=== PATIENT | female | born 1960 | race Caucasian/White ===

== ENCOUNTER → 2017-04-02 | Day surgery (SDC) | payer BC ==
[2017-03-11 12:28] VITALS: Ht 157.5 cm; Wt 70.0 kg
[~2017-04-02] VITALS: Ht 157.5 cm; Wt 70.0 kg
[~2017-04-02] MED LIST: ATROPINE SULFATE 0.1 MG/ML 5ML SYR IV PRN; BUPIVACAINE 0.5 % 5 MG/1 ML PF 10ML VIAL ONE; ESTR0.5T3 PO; EpHEDrine SULFATE INJ 50 MG/ML AMP IV PRN; FENTANYL CITRATE INJ 50 MCG/1 ML 2 ML VIAL IV PRN; FENTANYL CITRATE INJ 50 MCG/1 ML 2 ML VIAL ONE; HYDR-5688 PO; IBUP-1050 PO; LACTATED RINGER'S 1000ML 1,000 ML IV SCH; LEVO50TA PO; LIDOCAINE HCL 1% 20 ML VIAL ONE; LIDOCAINE HCL 2% 2 ML VIAL (20MG/ML) ONE; MECL1TAB42 PO; MIDAZOLAM HCL 1 MG/ML 2ML VIAL ONE; OMEGCAP2 PO; ONDANSETRON INJ 2 MG/ML 2 ML VIAL IV PRN; ONDANSETRON INJ 2 MG/ML 2 ML VIAL ONE; OXYCODONE/ACETAMINOPHEN 5-325 TAB PO PRN; PROPOFOL IV EMULSION 10 MG/ML 20 ML VIAL IV ONE; SODIUM CHLORIDE 0.9% 1000ML 1,000 ML IV SCH; TRAM-10 PO; VENL150C PO
[2017-04-02] MEDS: CEFAZOLIN 1000MG/55 ML D5W IV SCH ×2 (06:00→06:53)
--- NOTE | 2017-04-02 06:44 | History & Physical Bridge - [place] ---
H&P Re-Evaluation Bridge Note: I have examined the patient, reviewed the History & Physical and in the interval since the performance of the History & Physical I have noted the following changes of clinical significance: No changes noted
--- NOTE | 2017-04-02 07:14 | [facility] Post Operative Brief Note ---
Immediate Operative Summary Operative Date Apr 02, 2017. Pre-Operative Diagnosis Right Carpal Tunnel Syndrome Post-Operative Diagnosis Same Procedure(s) Performed Right Carpal Tunnel Release Surgeon Dr. Viera Master Carpenter Surgeon(s) Aftab Nunez PA-C Estimated Blood Loss None Findings ABOVE Specimens None Anesthesia LOCAL IV SEDATION Complication(s) None Disposition
[2017-04-02 07:15] VITALS: TEMP 36.4
--- NOTE | 2017-04-02 07:17 | Discharge Instructions-SurgCtr ---
Discharge Instructions Date of Service Apr 02, 2017. Visit Reason for Visit: Right Carpal Tunnel Syndrome, Wrist Pain Discharge Discharge Diagnosis / Problem: SAME ABOVE Discharge Goals Goal(s): Decrease discomfort, Improve function Activity Recommendations Activity Limitations: as noted below Lifting Limitations: until after follow-up appointment May Resume Sexual Activity: after follow-up appointment Shower/Bathe: keep incision dry Anesthesia . Post Anesthesia Instructions: If you have had General Anesthesia or IV Sedation: * Do not drive today. * Resume driving when surgeon permits. * Do not make important decisions or sign legal documents today. * Call surgeon for: 1. Temperature elevations greater than 101 degrees F. 2. Uncontrollable pain. 3. Excessive bleeding. 4. Persistent nausea and vomiting. 5. Medication intolerance (nausea, vomiting or rash). * For nausea and vomiting use only clear liquids such as: tea, soda, bouillon until nausea subsides, then gradually increase diet as tolerated. * If you have any concerns or questions, call your surgeon's office. If physician is unavailable and it is an emergency, call 911 or go to the nearest emergency room. . Instructions / Follow-Up Instructions / Follow-Up MEDICATIONS: * Resume previous medications unless instructed otherwise by your surgeon. * Always take pain medication on a full stomach or with food to avoid upset stomach. * Do not drink alcohol or drive while taking narcotics. * Ibuprofen or Tylenol may be taken if narcotic not needed. SPECIAL CARE INSTRUCTIONS: __ None _X_ Keep extremity elevated and iced x 48 hours; apply ice 20-30 minutes 8-10 times/day. May remove at night. __ Sling __24 hrs/day __ Remove at night __ Shoulder Immobilizer __ 24 hrs/day __ Remove at night _X_ Dressing _X_ Maintain until seen in office, may shower with plastic over site __ Remove dressings in 24-48 hours and then may shower __ Cover incisions with band-aids after showering __ Do not remove steri-strips Call physician if chills or temperature rises above 102 degrees or pain unrelieved by prescribed pain medications at . . Diet Recommendations Home Diet: resume previous diet Procedures Procedures Performed: Right Carpal Tunnel Release Pending Studies Studies pending at discharge: no Medical Emergencies . Who to Call and When: Medical Emergencies: If at any time you feel your situation is an emergency, please call 911 immediately. . Non-Emergent Contact Non-Emergency issues call your: Primary Care Provider . . "Provider Documentation" section prepared by Willem Nunez. .
[2017-04-02 07:34] VITALS: BP 125/82; PULSE 80; O2SAT 96
--- NOTE | 2017-04-02 07:38 | Anesthesia Progress Nt - [facility] ---
Anesthesia Post Op Note Date & Time Apr 02, 2017 at 07:38 Vital Signs Pain Intensity: 0 Vital Signs Past 12 Hours Date Time Temp Pulse Resp B/P (MAP) Pulse Ox O2 Delivery O2 Flow Rate FiO2 04/02/17 07:34 80 16 125/82 (96) 96 Room Air 04/02/17 07:15 36.4 66 12 111/70 (84) 95 Room Air 04/02/17 06:26 36.5 66 16 133/73 (93) 97 Room Air Notes Mental Status: alert / awake / arousable, participated in evaluation Pt Amnestic to Procedure: Yes Nausea / Vomiting: adequately controlled Pain: adequately controlled Airway Patency, RR, SpO2: stable & adequate BP & HR: stable & adequate Hydration State: stable & adequate Anesthetic Complications: no major complications apparent
--- NOTE | 2017-04-25 09:35 | OPERATIVE REPORT ---
DATE OF OPERATION: 04/02/2017 PREOPERATIVE DIAGNOSIS: Right carpal tunnel syndrome. POSTOPERATIVE DIAGNOSIS: Same. PROCEDURE: Decompression median nerve release transverse carpal ligament, right wrist. SURGEON: Dr. Viera. COUNTY EXTENSION AGENT: Willem Nunez PA-C. ANESTHESIOLOGIST: Dr. Hubbard. ANESTHESIA: Local with IV sedation. DRAINS: None. COMPLICATIONS: None. CONDITION: The patient tolerated the procedure well and returned to recovery in apparent satisfactory condition. INDICATIONS FOR SURGERY: Aline Milton is a 56-year-old female who has had increasing pain, numbness and tingling consistent with carpal tunnel in the right hand. Went over treatment options. Elected to go ahead and proceed with surgery. Procedure, expected outcomes and side effects were all explained in detail. OPERATION AND FINDINGS: PROCEDURE: The patient was taken to the OR at which time she was placed supine on the operating table. The right hand was prepped and draped in the usual sterile fashion for this surgery. The anticipated incision site was infiltrated with 1% Xylocaine. A forearm tourniquet was placed on the arm and tourniquet was placed up to 250 mmHg. Incision was made vertically over the transverse carpal tunnel ligament. Dissection was done down until the palmar fascia was identified and divided with a 15-blade. The transverse carpal ligament was identified and also divided with the 15-blade and upbiting scissors. A small portion of the forearm fascia was divided also. Electrocautery was used to control any areas of bleeding. The nerve was freed up from any scar tissue and adequately decompressed. The wound then was copiously irrigated. It was closed then with interrupted 4-0 nylon sutures. Marcaine without Epinephrine was placed in the skin edges. It was closed in a layered fashion. We placed a sterile dressing of Xeroform, 4 x 4, volar splint, and an Matt bandage. DISPOSITION: The patient was returned back to the recovery room in apparent satisfactory condition. I attest to the content of the Intraoperative Record and any orders documented therein. Any exception s are noted below.
== END | disposition home or self-care (01) ==
LOC: X.SURG 06:09
PROVIDERS: ATTEND Orthopaedic Surgery
DX: G56.01 Carpal tunnel syndrome, right upper limb (principal); E03.9 Hypothyroidism, unspecified; F32.9 Major depressive disorder, single episode, unspecified; Z79.899 Other long term (current) drug therapy

== ENCOUNTER → 2017-05-14 | Day surgery (SDC) | payer BC ==
[2017-05-10 11:22] VITALS: Ht 157.5 cm; Wt 70.0 kg
[~2017-05-14] VITALS: Ht 157.5 cm; Wt 70.0 kg
[~2017-05-14] MED LIST changes: +CEFAZOLIN 1000MG/55 ML D5W IV SCH; +FLUMAZENIL 0.1 MG/1 ML 10 ML VIAL IV PRN; -HYDR-5688 PO; +HYDROmorphone INJ 2 MG/ML SYR/VIAL IV PRN; +LABETALOL HCL IV 5 MG/ML 20ML IV PRN; -LIDOCAINE HCL 2% 2 ML VIAL (20MG/ML) ONE; +MEPERIDINE HCL 25 MG/ML CARP IV PRN; +NALOXONE HCL 0.4 MG/1 ML VIAL/CARP IV PRN; -ONDANSETRON INJ 2 MG/ML 2 ML VIAL ONE; +PHENYLEPHRINE 100MCG/ML 5ML SYR IV PRN
--- NOTE | 2017-05-14 07:40 | [facility] Post Operative Brief Note ---
Immediate Operative Summary Operative Date May 14, 2017. Pre-Operative Diagnosis Left Carpal Tunnel Syndrome Post-Operative Diagnosis same Procedure(s) Performed Left Carpal Tunnel Release Surgeon Dr. Laureen Viera Director [facility] Surgeon(s) Willem Nunez PA-C Estimated Blood Loss 0 Findings ABOVE Specimens none Anesthesia LOCAL IV SEDATION Complication(s) None Disposition
[2017-05-14 07:44] VITALS: TEMP 36.5
--- NOTE | 2017-05-14 07:45 | Discharge Instructions-SurgCtr ---
Discharge Instructions Date of Service May 14, 2017. Visit Reason for Visit: Left Carpal Tunnel Syndrome Discharge Discharge Diagnosis / Problem: SAME ABOVE Discharge Goals Goal(s): Decrease discomfort, Improve function Activity Recommendations Activity Limitations: as noted below Lifting Limitations: until after follow-up appointment Exercise/Sports Limitations: until after follow-up appointment Shower/Bathe: keep incision dry Anesthesia . Post Anesthesia Instructions: If you have had General Anesthesia or IV Sedation: * Do not drive today. * Resume driving when surgeon permits. * Do not make important decisions or sign legal documents today. * Call surgeon for: 1. Temperature elevations greater than 101 degrees F. 2. Uncontrollable pain. 3. Excessive bleeding. 4. Persistent nausea and vomiting. 5. Medication intolerance (nausea, vomiting or rash). * For nausea and vomiting use only clear liquids such as: tea, soda, bouillon until nausea subsides, then gradually increase diet as tolerated. * If you have any concerns or questions, call your surgeon's office. If physician is unavailable and it is an emergency, call 911 or go to the nearest emergency room. . Instructions / Follow-Up Instructions / Follow-Up MEDICATIONS: * Resume previous medications unless instructed otherwise by your surgeon. * Always take pain medication on a full stomach or with food to avoid upset stomach. * Do not drink alcohol or drive while taking narcotics. * Ibuprofen or Tylenol may be taken if narcotic not needed. SPECIAL CARE INSTRUCTIONS: __ None _X_ Keep extremity elevated and iced x 48 hours; apply ice 20-30 minutes 8-10 times/day. May remove at night. __ Sling __24 hrs/day __ Remove at night __ Shoulder Immobilizer __ 24 hrs/day __ Remove at night _X_ Dressing _X_ Maintain until seen in office, may shower with plastic over site __ Remove dressings in 24-48 hours and then may shower __ Cover incisions with band-aids after showering __ Do not remove steri-strips Call physician if chills or temperature rises above 102 degrees or pain unrelieved by prescribed pain medications at . . Diet Recommendations Home Diet: resume previous diet Procedures Procedures Performed: Left Carpal Tunnel Release Pending Studies Studies pending at discharge: no Medical Emergencies . Who to Call and When: Medical Emergencies: If at any time you feel your situation is an emergency, please call 911 immediately. . Non-Emergent Contact Non-Emergency issues call your: Primary Care Provider . . "Provider Documentation" section prepared by Willem Nunez. .
--- NOTE | 2017-05-14 07:51 | OPERATIVE REPORT ---
DATE OF OPERATION: 05/14/2017 PREOPERATIVE DIAGNOSIS: Left carpal tunnel syndrome. POSTOPERATIVE DIAGNOSIS: Same. PROCEDURE: Release transverse carpal ligament, left wrist. SURGEON: Dr. Viera. FINANCE ADVISOR: Willem Nunez PA-C. ANESTHESIOLOGIST: Dr. Dixon. ANESTHESIA: Local with IV sedation. DRAINS: None. COMPLICATIONS: None. CONDITION: The patient tolerated the procedure well and returned to the recovery room in apparent satisfactory condition. INDICATIONS FOR SURGERY: Aline is well known to me. She is 57-year-old and now presents with left carpal tunnel complaints having had her right hand done. I went over treatment options and elected to go ahead and proceed with surgery. Procedure, expected outcomes and side effects were all explained in detail. PROCEDURE: The patient was taken to the OR at which time she was placed supine on the operating table. The left hand was prepped and draped in the usual sterile fashion for this surgery. The anticipated incision site was infiltrated with 1% Xylocaine. A forearm tourniquet was placed on the arm and tourniquet was placed up to 250 mmHg. Incision was made vertically over the transverse carpal tunnel ligament. Dissection was done down until the palmar fascia was identified and divided with a 15-blade. The transverse carpal ligament was identified and also divided with the 15-blade and upbiting scissors. A small portion of the forearm fascia was divided also. Electrocautery was used to control any areas of bleeding. The nerve was freed up from any scar tissue and adequately decompressed. The wound then was copiously irrigated. It was closed then with interrupted 4-0 nylon sutures. Marcaine without Epinephrine was placed in the skin edges. It was closed in a layered fashion. We placed a sterile dressing of Xeroform, 4 x 4, volar splint, and an Matt bandage. DISPOSITION: The patient was returned back to the recovery room in apparent satisfactory condition. I attest to the content of the Intraoperative Record and any orders documented therein. Any exception s are noted below.
--- NOTE | 2017-05-14 07:52 | Anesthesia Progress Nt - [facility] ---
Anesthesia Post Op Note Date & Time May 14, 2017 at 07:52 Vital Signs Pain Intensity: 0 Vital Signs Past 12 Hours Date Time Temp Pulse Resp B/P (MAP) Pulse Ox O2 Delivery O2 Flow Rate FiO2 05/14/17 06:25 36.7 70 16 143/87 (105) 98 Room Air Notes Mental Status: alert / awake / arousable, participated in evaluation Pt Amnestic to Procedure: Yes Nausea / Vomiting: adequately controlled Pain: adequately controlled Airway Patency, RR, SpO2: stable & adequate BP & HR: stable & adequate Hydration State: stable & adequate Anesthetic Complications: no major complications apparent
[2017-05-14 08:05] VITALS: BP 127/74; PULSE 55; O2SAT 100
== END | disposition home or self-care (01) ==
LOC: X.SURG 06:19
PROVIDERS: ATTEND Orthopaedic Surgery
DX: G56.02 Carpal tunnel syndrome, left upper limb (principal); Z90.710 Acquired absence of both cervix and uterus; Z98.41 Cataract extraction status, right eye; E03.9 Hypothyroidism, unspecified; F32.9 Major depressive disorder, single episode, unspecified; M19.90 Unspecified osteoarthritis, unspecified site; F41.9 Anxiety disorder, unspecified

== ENCOUNTER → 2017-06-21 | Outpatient (CLI) | payer BC ==
[~2017-06-21] MED LIST changes: -ATROPINE SULFATE 0.1 MG/ML 5ML SYR IV PRN; -BUPIVACAINE 0.5 % 5 MG/1 ML PF 10ML VIAL ONE; -CEFAZOLIN 1000MG/55 ML D5W IV SCH; -EpHEDrine SULFATE INJ 50 MG/ML AMP IV PRN; -FENTANYL CITRATE INJ 50 MCG/1 ML 2 ML VIAL IV PRN; -FENTANYL CITRATE INJ 50 MCG/1 ML 2 ML VIAL ONE; -FLUMAZENIL 0.1 MG/1 ML 10 ML VIAL IV PRN; -HYDROmorphone INJ 2 MG/ML SYR/VIAL IV PRN; -LABETALOL HCL IV 5 MG/ML 20ML IV PRN; -LACTATED RINGER'S 1000ML 1,000 ML IV SCH; -LIDOCAINE HCL 1% 20 ML VIAL ONE; -MEPERIDINE HCL 25 MG/ML CARP IV PRN; -MIDAZOLAM HCL 1 MG/ML 2ML VIAL ONE; -NALOXONE HCL 0.4 MG/1 ML VIAL/CARP IV PRN; -ONDANSETRON INJ 2 MG/ML 2 ML VIAL IV PRN; -OXYCODONE/ACETAMINOPHEN 5-325 TAB PO PRN; -PHENYLEPHRINE 100MCG/ML 5ML SYR IV PRN; -PROPOFOL IV EMULSION 10 MG/ML 20 ML VIAL IV ONE; -SODIUM CHLORIDE 0.9% 1000ML 1,000 ML IV SCH
--- NOTE | 2017-06-21 12:29 | DIAGNOSTIC IMAGING REPORT ---
CERVICAL SPINE 2 OR 3 VIEWS HISTORY: Pain M54.2 Cervicalgia with worsening cervical spine pain. R/o DDD. COMPARISON: None. FINDINGS: The cervical spine is visualized from C1 through the superior endplate of T1. There is no fracture. No subluxation. Disc spaces are preserved. Prevertebral soft tissues and the atlantodens interval are intact. IMPRESSION: No fracture or subluxation within the cervical spine. The above report was generated using voice recognition software. It may contain grammatical, syntax or spelling errors. Electronically signed by: Musa Carl M.D. 06/21/2017 12:28 PM Dictated Date/Time: 06/21/2017 12:27 PM
== END | disposition home or self-care (01) ==
LOC: C.RAD1850 12:17
PROVIDERS: ATTEND Family Medicine
DX: M54.2 Cervicalgia (principal)

== ENCOUNTER → 2017-08-16 | Outpatient (CLI) | payer BC ==
--- NOTE | 2017-08-16 09:35 | DIAGNOSTIC IMAGING REPORT ---
Neck ULTRASOUND HISTORY: R22.1 Lump in neck Pt with palpable lump at left side of neck, an COMPARISON: None. FINDINGS: Real-time sonographic imaging of the neck was performed. At the patient's questioned palpable abnormality in the left submandibular region there is a normal-appearing submandibular gland. No lymph nodes, fluid collections, or masses identified within the neck. The thyroid gland appears unremarkable. IMPRESSION: No sonographic abnormality within the neck. The patient's palpable abnormality appears to correspond to a normal left submandibular gland. Electronically signed by: Husam Saleh M.D. 08/16/2017 9:34 AM Dictated Date/Time: 08/16/2017 9:31 AM
== END | disposition home or self-care (01) ==
LOC: C.ULTR 09:05
PROVIDERS: ATTEND Family Medicine
DX: R22.1 Localized swelling, mass and lump, neck (principal)

== ENCOUNTER → 2017-10-29 | Outpatient (CLI) | payer BC ==
[2017-10-29 18:11] LABS: BASO % 0.6 %; BASO ABS # 0.04 K/uL (0-0.2); EOS % 3.1 %; HEMATOCRIT 39.1 % (37-47); IG# 0.02 K/uL (0.00-0.02); LYMPH % 33.1 %; LYMPH ABS # 2.14 K/uL (1.2-3.4); MEAN CELL VOLUME 90.5 fL (80-100); MEAN CORPUSCULAR HEMOGLOBIN 30.1 pg (25-34); MEAN CORPUSCULAR HGB CONC 33.2 g/dl (32-36); MEAN PLATELET VOLUME 9.4 fL (7.4-10.4); MONO % 8.8 %; MONO ABS # 0.57 K/uL (0.11-0.59); NEUT % 54.1 %; PLATELET COUNT 361 K/uL (130-400); RED CELL DISTRIBUTION WIDTH CV 13.1 % (11.5-14.5); RED CELL DISTRIBUTION WIDTH SD 42.9 fL (36.4-46.3); WHITE BLOOD COUNT 6.47 K/uL (4.8-10.8)
== END | disposition home or self-care (01) ==
LOC: C.LABPBG 14:08
PROVIDERS: ATTEND Family Medicine
DX: M79.604 Pain in right leg (principal)